=== PATIENT | male | born 1990 | race Caucasian/White ===

== ENCOUNTER 2020-05-30 17:03 | Outpatient (REF) | payer OTHER, SELFPAY | END 2020-05-30 17:04 | disposition home or self-care (01) | LOC: HO.LAB 17:03 | PROVIDERS: PCP Internal Medicine; Visit Provider Internal Medicine | DX: Z20.828 Contact with and (suspected) exposure to other viral communicable diseases (principal) | CPT/HCPCS: 87635 ==

== ENCOUNTER 2021-03-09 12:33 | Emergency (ER) | payer OTHER, SELFPAY ==
--- NOTE | ~2021-03-09 | CT_ITS ---
EXAMINATION: CT ABDOMEN AND PELVIS WITHOUT CONTRAST CLINICAL INFORMATION: Left flank pain COMPARISON: None TECHNIQUE: Multidetector volumetric imaging was performed from the superior aspect of the liver through the pubic symphysis. Sagittal and coronal reformatted images were obtained on the technologist's workstation. This CT examination was performed using dose optimization techniques as appropriate, variously including the following: *Automated exposure control *Adjustment of mA and/or kV according to patient size (this includes techniques or standardized protocols for targeted exams where dose is matched to indication/reason for exam; i.e. extremities or head) *Use of iterative reconstruction technique DLP: 492 mGy-cm FINDINGS: LUNG BASES: The visualized lung bases are unremarkable. LIVER, GALLBLADDER, AND BILIARY TREE: The liver is normal in size, shape, and attenuation. No focal hepatic lesion or biliary ductal dilatation is present. The gallbladder is unremarkable with no evidence of radiopaque gallstones, gallbladder wall thickening, or obvious pericholecystic inflammatory changes. PANCREAS: Unremarkable. SPLEEN: Unremarkable. ADRENAL GLANDS: Unremarkable. KIDNEYS AND URETERS: The kidneys are normal in size, shape, and attenuation. No hydronephrosis, hydroureter, or calculi seen. No perinephric stranding. BLADDER: Unremarkable. GASTROINTESTINAL TRACT: The small and large bowel are unremarkable. The appendix is unremarkable. ABDOMINAL WALL: Small fat-containing umbilical hernia without inflammation. LYMPH NODES: Normal. VASCULAR: Unremarkable. PELVIC VISCERA: Unremarkable. OSSEOUS STRUCTURES: Unremarkable. CT/CT abdomen pelvis wo con IMPRESSION: No urinary calculi. No significant abnormality.
[2021-03-09 12:47] VITALS: BP 106/75; PULSE 84; RESP 18; TEMP 37; O2SAT 98; BMI 27.6
[2021-03-09 15:23] LABS: MANUAL DIFF FLAG NO
[2021-03-09 15:25] LABS: Basophils Absolute Auto 0.1 X10*3/uL (0.0-0.2); Basophils Percent Auto 0.9 % (0-2); Eosinophils Absolute Auto 0.1 X10*3/uL (0.0-0.4); Eosinophils Percent Auto 1.3 % (0-4); Hematocrit 43.3 % (42-52); Hemoglobin 15.8 g/dl (14.0-18.0); Imm Gran Abs Auto 0.04 X10*3/uL (0.00-0.03); Imm Gran Pct Auto 0.4 % (0.0-0.4); Lymphocytes Absolute Auto 1.8 X10*3/uL (1.2-4.9); Lymphocytes Percent Auto 20.4 % (20-40); Mean Corpuscular HGB Conc 36.5 g/dl (31.0-36.0); Mean Corpuscular Hemoglobin 33.5 pg (27.0-33.0); Mean Corpuscular Volume 91.9 fL (80-98); Monocytes Absolute Auto 0.6 X10*3/uL (0.1-1.2); Neutrophils Absolute Auto 6.3 X10*3/uL (2.0-8.3); Platelet Count 249 X10*3/uL (160-400); Red Blood Count 4.71 X10*6/uL (4.60-5.80)
[2021-03-09 15:26] LABS: Glucose Urine UA NEG (NEG); Leukocyte Esterase Urine NEG (NEG); Nitrite Urine NEG (NEG); Urine Blood NEG (NEG); Urine Ketones NEG (NEG); Urine Protein NEG (NEG-TRACE)
[2021-03-09 15:29] LABS: Appearance Urine CLEAR; Color Urine YELLOW
[2021-03-09 15:56] LABS: Alanine Aminotransferase 118 U/L (0-40); Albumin Level 4.9 g/dL (3.5-5.0); Alkaline Phosphatase 113 U/L (39-117); Anion Gap 13 (12-20); Aspartate Amino Transferase 69 U/L (5-37); Bilirubin Total 0.7 mg/dL (0.0-1.0); Blood Urea Nitrogen 13 mg/dL (9-16); Calcium 9.4 mg/dL (8.4-10.2); Carbon Dioxide 28 mmol/L (22-29); Chloride 102 mmol/L (96-108); Creatinine Clr Calc Pharmacy 122.3; Estimated Glomerular Filt Rate > 60; Glucose Random 98 mg/dL (60-115); Sodium 139 mmol/L (135-145); Total Protein 8.3 g/dL (6.5-8.0)
[2021-03-09] MEDS: Ketorolac Tromethamine 30 MG/ML VIAL IM (16:20)
[2021-03-09 16:26] VITALS: BP 112/74; PULSE 62; RESP 14; O2SAT 97
--- NOTE | 2021-03-09 16:54 | ED_ITS ---
HPI - Abdominal Pain General Chief Complaint: Abdominal Pain Stated Complaint: abd pain Time Seen by Provider: 03/09/21 16:04 Source: patient Mode of arrival: ambulatory Limitations: no limitations History of Present Illness HPI narrative: 30 y/o male with no significant medical history presents to the ER with 5 days of constant non-traumatic left flank pain. He reports the pain is dull and at times comes in waves of severe sharp pain. He denies injury or heavy lifting. He denies any urinary symptoms. No N/V/D. No fever or chills. MD elicited complaint: flank pain Pertinent past history: none Onset (ago): day(s) (5) Pain Consistency: constant Location: L flank Severity: moderate Pain scale (0-10): 7 Quality: aching Radiation: LUQ Migration to: no migration Exacerbating factors: nothing Relieving factors: nothing Associated symptoms: denies other symptoms Related Data Previous Rx's Medication Instructions Recorded cyclobenzaprine 10 mg PO TID PRN #10 tab 03/09/21 ibuprofen 600 mg PO Q8H PRN #15 tab 03/09/21 lidocaine [Lidoderm] 1 patch TOPICAL DAILY #15 ea 03/09/21 Allergies Allergy/AdvReac Type Severity Reaction Status Date / Time No Known Allergies Allergy Verified 03/09/21 12:46 [No Known Allergies*] Review of Systems Review of Systems Constitutional: No Fever, No Chills ENT/Mouth: No sore throat, No Rhinorrhea, No Swallowing Difficulty Eyes: No Eye Pain, No Swelling, No Redness Cardiovascular: No Chest Pain, No SOB, No Orthopnea, No Edema Respiratory: No Cough, No Sputum, No Wheezing, No dyspnea Gastrointestinal: No Nausea, No Vomiting, No Diarrhea, + abdominal Pain, No Hematochezia, No Melena Genitourinary: No Dysuria, No Urinary Frequency, No Hematuria Musculoskeletal: No joint pain, No Myalgias Skin: No Skin Lesions, No rash Neuro: No Weakness, No Numbness, No Dizziness, No Headache Psych: No Anxiety/Panic, No Depression Heme/Lymph: No Bruising, No Lymphadenopathy Endocrine: No Polyuria, No Polydipsia Physical Exam Vital Signs: Vital Signs: Last Vital Signs Temp 98.6 F 03/09/21 12:47 Pulse 73 03/09/21 17:42 Resp 16 07/18/21 17:42 BP 109/69 03/09/21 17:42 Pulse Ox 98 03/09/21 17:42 Body Mass Index 27.6 Appearance: Alert. Oriented X3. No acute distress. Eyes: Pupils equal, round and reactive to light. ENT: Pharynx normal. Neck: Normal inspection. Neck supple. CVS: Normal heart rate and rhythm. Pulses normal. Respiratory: No respiratory distress. Breath sounds normal. Abdomen: Soft and nontender. +BS x4. No CVA tenderness. Mild tenderness throughout left flank. no rashes or ecchymosis Skin: Skin warm and dry. Normal skin color. Normal skin turgor. No rashes. Extremities: No lower extremity edema. Neuro: Oriented X 3. No motor deficit. No sensory deficit. Course Course Course Narrative: 30 y/o male presenting with left flank pain. Atypical of kidney stones. Labs are normal but given his reports of 7/[address] scan for further evaluation. Reevaluation(s) Reevaluation #1: CT scan is negative. Will treat for MSK pain, possible muscle strain with slight tenderness on examination. He will f/u with his PCP this week. Stable for d/c home. MDM - Abdominal Pain Lab Data Result diagrams: 03/09/21 15:07 03/09/21 15:07 Labs: Lab Results 03/09/21 03/09/21 03/09/21 Range/Units 15:07 15:07 15:17 WBC 9.0 (4.8-10.8) X10*3/uL RBC 4.71 (4.60-5.80) X10*6/uL Hgb 15.8 (14.0-18.0) g/dl Hct 43.3 (42-52) % MCV 91.9 (80-98) fL MCH 33.5 H (27.0-33.0) pg MCHC 36.5 H (31.0-36.0) g/dl RDW 11.0 (11.0-16.0) % Plt Count 249 (160-400) X10*3/uL MPV 10.0 (9.4-12.4) fL Immature Gran % (Auto) 0.4 (0.0-0.4) % Neut % (Auto) 70.0 (45-73) % Lymph % (Auto) 20.4 (20-40) % Beckham % (Auto) 7.0 (2-11) % Eos % (Auto) 1.3 (0-4) % Baso % (Auto) 0.9 (0-2) % Lymph # (Auto) 1.8 (1.2-4.9) X10*3/uL Beckham # (Auto) 0.6 (0.1-1.2) X10*3/uL Eos # (Auto) 0.1 (0.0-0.4) X10*3/uL Baso # (Auto) 0.1 (0.0-0.2) X10*3/uL Abs Immat Gran (auto) 0.04 H (0.00-0.03) X10*3/uL Absolute Neuts (auto) 6.3 (2.0-8.3) X10*3/uL Absolute Nucleated RBC 0.000 (0.0-0.012) X10*3/uL Nucleated RBC % (auto) 0.0 (0.0-0.2) /100WBC Sodium 139 (135-145) mmol/L Potassium 4.0 (3.3-5.1) mmol/L Chloride 102 (96-108) mmol/L Carbon Dioxide 28 (22-29) mmol/L Anion Gap 13 (12-20) BUN 13 (9-16) mg/dL Creatinine 0.91 (0.5-1.4) mg/dL Estim Creat Clear Calc 122.3 Estimated GFR > 60 Random Glucose 98 (60-115) mg/dL Calcium 9.4 (8.4-10.2) mg/dL Total Bilirubin 0.7 (0.0-1.0) mg/dL AST 69 H (5-37) U/L ALT 118 H (0-40) U/L Alkaline Phosphatase 113 (39-117) U/L Total Protein 8.3 H (6.5-8.0) g/dL Albumin 4.9 (3.5-5.0) g/dL Urine Color YELLOW Urine Appearance CLEAR Urine pH 6.0 (5.0-8.0) Ur Specific [place] 1.010 (1.005-1.025) Urine Protein NEG (NEG-TRACE) MG/DL Urine Glucose (UA) NEG (NEG) MG/DL Urine Ketones NEG (NEG) MG/DL Urine Blood NEG (NEG) Urine Nitrite NEG (NEG) Ur Leukocyte Esterase NEG (NEG) Critical Care Time Critical Care Time Critical Care Time: No Discharge Plan Discharge Clinical Impression: Muscle strain Patient Disposition: Home, Self-Care Instructions: Musculoskeletal Pain (ED) Additional Instructions: Your lab work and CT scans today were normal. Your pain is most likely muscular in nature. Recommend rest. No strenuous activity. No bending, lifting or twisting. Use ice several times per day for 20 minutes at a time for the next 48 hours and then change to heat. Take medications as prescribed to help with pain and discomfort. Follow up with your Primary Care Doctor this week. If your pain worsens, or if you develop any new or concerning symptoms 911 or come back to the ER right away for evaluation. Prescriptions: New cyclobenzaprine 10 mg tablet 10 mg PO TID PRN (Reason: muscle spasm) Qty: 10 RF: 0 ibuprofen 600 mg tablet 600 mg PO Q8H PRN (Reason: pain) Qty: 15 RF: 0 lidocaine [Lidoderm] 5 % adhesive patch,medicated 1 patch topical DAILY Qty: 15 RF: 0 Referrals: Jostin Rosenbaum MD [Primary Care Provider] - 2 days Stand Alone Forms: Work/School Release Interventions: ED Discharge Assessment Last Done: 03/09/21 19:29 Discharge Date/Time: 03/09/21 19:29 [facility] Past Medical History Attestation statement: The following information was validated with the patient. Medical History (Updated 03/09/21 @ 18:35 by GIRISH Jones) No pertinent past medical history Social History Social History Advance Directives: No Advance Directives Information Provided: No
[2021-03-09 17:42] VITALS: BP 109/69; PULSE 73; RESP 16; O2SAT 98
== END 2021-03-09 19:29 | disposition home or self-care (01) ==
PROVIDERS: Emergency Provider Emergency Medicine; PCP Internal Medicine
DX: R10.12 Left upper quadrant pain (principal); Z79.899 Other long term (current) drug therapy
CPT/HCPCS: 36415; 74176; 80053; 81003; 85025; 96372; 99284; J1885

== ENCOUNTER 2021-04-01 13:10 | Outpatient (REF) | payer OTHER, SELFPAY ==
[2021-04-05 12:42] LABS: Norfentanyl, Ur >500.0 (H)
== END 2021-04-01 13:11 | disposition home or self-care (01) ==
LOC: HO.LAB 13:10
PROVIDERS: PCP Internal Medicine; Visit Provider Internal Medicine
DX: F11.99 Opioid use, unspecified with unspecified opioid-induced disorder (principal); Z79.899 Other long term (current) drug therapy
CPT/HCPCS: 80305; 80354; 99202

== ENCOUNTER → 2022-12-04 13:16 | Outpatient (BNVA) | payer MEDICAID, SELFPAY | PROVIDERS: PCP Internal Medicine; Visit Provider Nurse Practitioner Family | DX: R10.31 Right lower quadrant pain (principal); R10.32 Left lower quadrant pain; R79.89 Other specified abnormal findings of blood chemistry | CPT/HCPCS: 99202 ==

== ENCOUNTER 2022-12-30 12:46 | Outpatient (REF) | payer MEDICAID, SELFPAY ==
[2022-12-30 14:27] LABS: Ferritin 209 ng/mL (20-250); Thyroid Stimulating Hormone 3.62 uIU/mL (0.32-4.0)
[2023-01-01 04:04] LABS: Follicle Stimulating Hormone 3.1 mIU/mL (1.6-8.0); Lutenizing Hormone 5.9 mIU/mL (1.5-9.3); Prolactin 13.8 ng/mL (2.0-18.0)
[2023-01-05 19:47] LABS: Testosterone, Free 45.2 pg/mL (35.0-155.0); Testosterone, Total 345 ng/dL (250-1100)
== END 2022-12-30 12:47 | disposition home or self-care (01) ==
LOC: HO.10HDL 12:46
PROVIDERS: Visit Provider Nurse Practitioner Family
DX: E11.9 Type 2 diabetes mellitus without complications (principal); R79.89 Other specified abnormal findings of blood chemistry
CPT/HCPCS: 36415; 82728; 83001; 83002; 84146; 84402; 84403; 84443

== ENCOUNTER → 2023-01-13 14:41 | Outpatient (BNVA) | payer MEDICAID, SELFPAY | PROVIDERS: PCP Internal Medicine; Visit Provider Urology | DX: R79.89 Other specified abnormal findings of blood chemistry (principal) | CPT/HCPCS: 99212 ==

== ENCOUNTER 2023-08-03 15:04 | Outpatient (REF) | payer MEDICAID, SELFPAY ==
--- NOTE | ~2023-08-03 | XR_ITS ---
EXAMINATION: XR ABDOMEN COMPLETE CLINICAL INDICATION: Pain and nausea. COMPARISON: None available. TECHNIQUE: 2 views of the abdomen. FINDINGS: The bowel gas pattern is normal with no evidence of ileus or obstruction. No unusual soft tissue calcifications are noted. The bones are unremarkable. XR/XR abdomen min 2V IMPRESSION: Nonspecific bowel gas pattern.
== END 2023-08-03 15:05 | disposition home or self-care (01) ==
LOC: HO.HMGCX 15:04
PROVIDERS: PCP Internal Medicine; Visit Provider Internal Medicine
DX: R10.9 Unspecified abdominal pain (principal); R11.0 Nausea
CPT/HCPCS: 74019

== ENCOUNTER 2025-05-22 14:34 | Outpatient (AMB) | payer OTHER, SELFPAY ==
--- NOTE | 2025-05-22 14:31 | MHC.PC.OV ---
Vital Signs 05/22/25 14:41 Height 5 ft 7.13 in Weight 159 lb BMI 24.8 BP 109/56 L Respiration 14 Pulse 68 Pulse Source Pulse Oximeter Temp 98.2 F Temp Source Temporal Artery Scan Pulse Oximetry (%) 99 Oxygen Delivery Method Room Air Intake Visit Reasons: [place] [facility] [place] [employer] Account Executive Required: No Accompanied by: Self / Same As Patient Allergies No Known Allergies (No Known Allergies*) Allergy (Verified 05/22/25 14:32) Tobacco use date assessed: 05/22/25 Dental Screening Dental Screen Date: 05/22/25 Did you have a dental visit in the last 12 months?: No Did you have a dental problem in the last 6 months where you did not have access to dental care?: No Was dental information given to patient?: Patient has dentist (has upcoming dentist appt) [facility] Medical History (Updated 05/22/25 @ 15:10 by Adrian Vela MD) Major depression in complete remission No pertinent past medical history Family History (Updated 05/22/25 @ 14:49 by MARIO Costello) Father Sarcoidosis Kidney failure Mother No problems noted. Social History (Updated 05/22/25 @ 14:49 by MARIO Costello) Housing: House Alcohol intake: current Alcohol intake frequency: does not drink Patient Tobacco Use Status: Never used Tobacco service: No Current occupational status: employed Cognitive needs: No Hearing needs: No Vision needs: No Questionnaire PHQ-9 Over the last 2 weeks, how often have you been bothered by any of the following problems? 1. Little interest or pleasure in doing things: not at all 2. Feeling down, depressed, or hopeless: not at all 3. Trouble falling or staying asleep, or sleeping too much: not at all 4. Feeling tired or having little energy: not at all 5. Poor appetite or overeating: not at all 6. Feeling bad about yourself - or that you are a failure or have let yourself or your family down: not at all 7. Trouble concentrating on things, such as reading the newspaper or watching television: not at all 8. Moving or speaking so slowly that other people could have noticed. Or the opposite - being so fidgety or restless that you have been moving around a lot more than usual: not at all 9. Thoughts that you would be better off or of hurting yourself in some way: not at all Total score: 0 Source: Developed by Drs. Gordon Arriola, Jose Keith and colleagues, with an educational jayson from [employer]. Thrive Questionnaire Date Thrive assessed: 05/22/25 I am a: Patient What is your living situation today?: I have a steady place to live Within the past 12 months, did the food you bought not last and you didn't have the money to get more?: Never true Within the past 12 months, did you worry whether your food would run out before you got money to buy more?: Never true Do you have trouble paying for medicines?: No Do you have trouble getting transportation to medical appointments?: No Do you have trouble paying your heating and electricity bill?: No Do you have trouble taking care of your child, family member or friend?: No Do you have trouble with day-to-day activities such as bathing, preparing meals, shopping, managing finances, etc.?: No Are you currently unemployed and looking for a job?: No Are you interested in more education?: No Please select the resources that you would like help with: None THRIVE Score: 0 AUDIT C Alcohol Use Questionnaire (AUDIT-C) 1. How often do you have a drink containing alcohol?: Never 3. How often do you have six or more drinks on one occasion?: Never Total Score: 0 THEODORE-7 AMB Questionnaire THEODORE-7 Date THEODORE - 7 assessed: 05/22/25 Feeling nervous, anxious, or on edge: 0 = Not at all Not being able to stop or control worryin = Not at all Worrying too much about different things: 0 = Not at all Trouble relaxin = Not at all Being so restless that it is hard to sit still: 0 = Not at all Becoming easily annoyed or irritable: 0 = Not at all Feeling afraid as if something awful might happen: 0 = Not at all Total THEODORE-7 score (0-4 normal; 5-9 mild; 10-14 moderate; 15-21 severe): 0 Source: Developed by Shirlene Noriega Kurt Kroenke and colleagues, with an educational jayson from [employer]. Physical exam (Primary Care) Vital Signs: Last Vital Signs Temp 98.2 F 05/22/25 14:41 Pulse 68 05/22/25 14:41 Resp 14 05/22/25 14:41 BP 109/56 L 05/22/25 14:41 Pulse Ox 99 05/22/25 14:41 Oxygen Delivery Method Room Air 05/22/25 14:41 BMI result Body Mass Index 24.8 Tobacco/Smoking Status: Tobacco use Status Tobacco use date assessed 05/22/25 05/22/25 14:33 Patient Tobacco Use Status Never used Tobacco 05/22/25 14:49 PHQ-9: PHQ-9 Score PHQ-9: Total score 0 05/22/25 14:49 Thrive Assessment: Date of Thrive Assessment Date Thrive assessed 05/22/25 05/22/25 14:33 Coding Level of Care Code New Pt Level 4 (75091) Complex EM visit Add On G2211 Diagnoses Major depression in complete remission F32.5 Assessment & Plan Assessment & Plan (1) Major depression in complete remission: Code(s): F32.5 - Major depressive disorder, single episode, in full remission Category: Medical Plan: Declined to continue the prescription of anxiolytics. Patient was given an appt for the [facility] psychiatry center. Plan History of Present Illness - The patient is a 35-year-old male presenting with dermatological concerns, allergic rhinitis, and medication management. - Dermatological concerns: The patient reports moles on his back that his girlfriend suggested be evaluated by a special tax auditor. He also has a persistent red martha on his nose from a scratch by his nephew two to three years ago, which has not resolved. - Allergic rhinitis: The patient takes Loratadine and Fluticasone for allergy management. He experiences nasal discharge and suspects a possible allergy to his cat. He inquired about allergy testing to identify specific allergens. - Anxiety: The patient has been taking Alprazolam for anxiety management. He expressed concerns about the habit-forming nature of the medication and discussed the possibility of weaning off it with his previous physician, Dr. Estrada. - Herpes simplex: The patient uses Valacyclovir as needed for herpes simplex management, particularly during prodromal symptoms of an outbreak. - Substance use disorder: The patient has a history of substance use disorder, specifically with oxycodone, and has been on Methadone maintenance therapy for approximately ten years. - Hypogonadism: The patient was diagnosed with low testosterone levels and is currently on testosterone replacement therapy. He initially consulted with Dr. Dumont and Dr. Amaya but now receives treatment through an online provider. He expressed concerns about fertility and previously used HCG to maintain fertility, but discontinued due to cost. 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 - Substance use: The patient denies current tobacco and alcohol use. Review of Systems - Dermatological: Reports persistent nasal erythema from previous trauma. - Respiratory: Reports nasal discharge, possibly related to allergies. Physical Exam General: Cooperative and healthy appearing Nutritional Appearance: Well nourished Orientation/consciousness: Patient oriented x3 Limitations: No limitations Head: Normal to inspection General: Appearance normal, both eyes and all related structures Neck: Normal visual inspection Chest: Normal palpation of entire chest wall Respiratory: Breathe in and out okay ormal respiratory effort Neurology: Patient oriented x3 Results Plan - Dermatological concerns: Referral to a special tax auditor for evaluation of moles on the back and persistent nasal erythema. - Allergic rhinitis: Continue Fluticasone and Loratadine. Consider allergy testing to identify specific allergens. - Anxiety: Referral to psychiatry for evaluation and management of anxiety, particularly regarding Alprazolam use. - Herpes simplex: Continue Valacyclovir as needed for outbreak management. - Substance use disorder: Continue Methadone maintenance therapy. - Hypogonadism: Continue testosterone replacement therapy. Consider consultation with a urologist for fertility management and potential HCG therapy. Discussion Notes I discussed with the patient the need for a dermatological evaluation for the moles on his back and the persistent nasal erythema. We talked about continuing his current allergy medications and considering allergy testing to identify specific allergens. I expressed concerns about the long-term use of Alprazolam for anxiety and recommended a referral to psychiatry for further management. We also discussed the continuation of Valacyclovir for herpes simplex management and Methadone for substance use disorder. The patient is advised to continue testosterone replacement therapy and consider consulting a urologist for fertility management and potential HCG therapy. Patient Instructions - Follow up with a special tax auditor for moles and nasal erythema evaluation. - Continue taking Fluticasone and Loratadine for allergies. - Consider allergy testing to identify specific allergens. - Follow up with psychiatry for anxiety management and Alprazolam use. - Continue Valacyclovir as needed for herpes simplex outbreaks. - Continue Methadone maintenance therapy. - Continue testosterone replacement therapy and consider consulting a urologist for fertility management. Orders: Orders Lipid Panel Today J - Other allergic rhinitis Complete Blood Count Auto Diff Today J - Other allergic rhinitis Basic Metabolic Panel Today J. - Other allergic rhinitis Liver Panel Today J. - Other allergic rhinitis Thyroid Stimulating Hormone Today J - Other allergic rhinitis UA and rflx microscopic Today J - Other allergic rhinitis Referrals Psychiatry Outpatient Consultation Service F32.4 - Major depressive disorder, single episode, in partial remission Medications: New fluticasone propionate 50 mcg/actuation administer into each nostril 1 spray intranasal DAILY 16 grams 1RF Changed From valacyclovir 500 mg PO DAILY To valacyclovir 500 mg PO DAILY PRN 30 tabs 0RF rash
[2025-05-22 14:41] VITALS: BP 109/56; PULSE 68; RESP 14; TEMP 36.8; O2SAT 99; BMI 24.8
--- OUTSIDE RECORDS SUMMARY | 2025-05-22 15:57 | XMS_ITS | Clinical Summary ---
Author Organization [facility] Address [address] [place] [address] Care Team Providers Care Hoop Riveter Name Role Phone Pcp, No Primary Care Provider Unavailabl e Social History Tobacco Use Types Packs/Day Years Used Date Smoking Tobacco: Never Assessed Sex and Gender Information Value Date Recorded Sex Assigned at Not on file Legal Sex Male 9:35 AM EDT Gender Identity Not on file Sexual Orientation Not on file Plan of Treatment Health Maintenance Due Date Last Done Comments Hepatitis C Virus Screening 1992 HIV Screening 2005 DTaP/Tdap/Td Vaccines (1 - Tdap) 2011 Hepatitis B Vaccines (1 of 3 - 19+ 3-dose series) 2011 HPV Vaccines (1 - 3-dose SCD M series) 2019 Influenza Vaccine 03/23/2025 COVID-19 Vaccine (2023-2 5 season) 2025 Pneumococcal Vaccine: Pediat britany (0-5 Years) and At-Risk Patients (6 to 49 Years) Aged Out No longer eligible b ased on patient's age to complete this topic Insurance [facility] [place] [place] Care Teams Hoop Riveter Relationship Specialty Start Date End Date Pcp, No PCP - General General Medicine 03/23/19
--- OUTSIDE RECORDS SUMMARY | 2025-05-22 15:57 | XMS_ITS | Clinical Summary ---
Author Organization [facility] Address [address] [address] Phone Care Team Providers Care Baby Stroller Rental Clerk Name Role Phone Jostin Rosenbaum MD Primary Care Provider [phone] Allergies Active Allergy Reactions Criticality Noted Date Comments Amoxicillin 08/23/2021 Other reaction(s): RASH Medications finasteride (PROPECIA) 1 mg tablet Take 1 mg by mouth daily. Active ibuprofen (ADVIL,MOTRIN) 600 MG tablet Take 1 tablet by mouth every 8 (eight) hours as needed. 03/09/2021 Active Active Problems No known active problems Immunizations Immunization Administration Dates Next Due DTP 01/08/1994, 3,1992,06/27 Dtap, 5 Pertussis Antigens 04/12/1998 Hepatitis B 1992,1992,1992 Hib,PRP-T 09/29/1993, 3,1992,06/27 INFLUENZA, SPLIT VIRUS, TRIV ALENT W/ PRESERVATIVE IM 09/12/2008,09/12/2008 IPV 04/12/1998 MMR 04/17/1996,09/29/1993 Meningococcal ACWY, unspecif ied formulation 03/29/2006 Meningococcal MCV4P 03/29/2006 Polio - OPV 01/08/1994,1992,1992 Td (adult),2 Lf Tetanus Toxo id, PF, Adsorbed 06/11/2003 Tdap 08/23/2016,12/05/2008 Varicella 12/05/2008,12/05/2008,10/31/1997 Social History Tobacco Use Types Packs/Day Years Used Date Smoking Tobacco: Never Smokeless Tobacco: Never Alcohol Use Standard Drinks/Week Comments Yes 6 (1 standard drink = 0.6 oz pur e alcohol) 3-4x per week Education Answer Date Recorded Are you interested in more education? Not on nicky e 12/18/2022 Are you concerned about learning? Not on file 12/18/2022 No 12/18/2022 No 12/18/2022 Digital Access Answer Date Recorded No 01/16/2023 No 01/16/2023 No 01/16/2023 Reliable internet access at home? Not on file 01/16/2023 Device with a working camera? Not on file Sex and Gender Information Value Date Recorded Sex Assigned at Male 08/30/2017 9:38 AM EST Legal Sex Male 10:25 PM EDT Gender Identity Male 08/30/2017 9:38 AM EST Sexual Orientation Straight 08/30/2017 9: 38 AM EST Last Filed Vital Signs Vital Sign Reading Time Taken Comments Blood Pressure 105/75 08/23/2021 1:05 PM EST Pulse 95 08/23/2021 1:05 PM EST Temperature 36.8 C (98.2 F) 08/23/2021 1:05 PM EST Respiratory Rate 18 08/23/2021 1:05 PM EST Oxygen Saturation 95% 08/23/2021 1:05 PM EST Inhaled Oxygen Concentration - - Weight 77.1 kg (170 lb) 08/23/2021 1:05 PM EST Height 172.7 cm (5' 8 ) 08/23/2021 1:05 PM EST Body Mass Index 25.85 08/23/2021 1:05 PM EST Plan of Treatment Health Maintenance Due Date Last Done Comments DEPRESSION SCREENING 2004 HEPATITIS C SCREENING 2010 HIV ONE-TIME SCREENING (18-65 YEARS) 2010 INFLUENZA VACCINE (#1) 2025 09/12/2008, 2008 COVID-19 VACCINE ( season) 2025 Adult Td,Tdap Booster 08/23/2026 08/23/2016 , 12/05/2008, 06/11/2003 HIB VACCINES Completed 09/29/1993, 02/21, 1992, Additional history exists MENINGOCOCCAL VACCINES (ACWY) Aged Out 03/29/2006, 03/29/2006 No longer eligibl e based on patient's age to complete this topic SMOKING STATUS SCREENING (Once After 26 Yrs) Completed 08/23/2021 HEPATITIS A VACCINES Aged Out No long er eligible based on patient's age to complete this topic MENINGOCOCCAL VACCINES (B) Aged Out N o longer eligible based on patient's age to complete this topic PNEUMOCOCCAL VACCINES (0-49 years) Aged Out No longer eligible based on patient's age to complete this topic Medical Devices Not on file Insurance [facility] NON NSPG PCP [employer] [facility] NON NSPG PCP [employer]CIAL [employer] NON NSPG PCP [employer] COMMERCIAL [employer] NON NSPG PCP [employer] COMMERCIAL [employer] NON NSPG PCP [employer] COMMERCIAL [employer] NON NSPG PCP [employer] COMMERCIAL [employer] NON NSPG PCP [employer] COMMERCIAL [employer] NON NSPG PCP [employer]CIAL [employer] NON NSPG PCP [employer] COMMERCIAL Care Teams Baby Stroller Rental Clerk Relationship Specialty Start Date End Date Jostin Rosenbaum MD [address] [place] [address] PCP - General Internal Medicine 08/23/21 Additional Source Comments The information contained in this document represents components of the legal health record. It is not the complete legal health record.[facility]
== END 2025-05-22 15:11 | disposition home or self-care (01) ==
LOC: HO.HMCSH 14:34
PROVIDERS: PCP Internal Medicine; Visit Provider Internal Medicine
DX: F32.5 Major depressive disorder, single episode, in full remission (principal)

== ENCOUNTER → 2025-05-22 14:34 | Outpatient (BNVA) | payer OTHER, SELFPAY | PROVIDERS: PCP Internal Medicine; Visit Provider Internal Medicine | DX: F32.5 Major depressive disorder, single episode, in full remission (principal); J30.89 Other allergic rhinitis | CPT/HCPCS: 99202 ==

== ENCOUNTER 2025-06-25 08:08 | Outpatient (REF) | payer OTHER, SELFPAY ==
--- OUTSIDE RECORDS SUMMARY | 2025-06-25 08:19 | XMS_ITS | Clinical Summary ---
Author Organization [facility] Address [address] [address] Phone Care Team Providers Care Application Operations Engineer Name Role Phone Jostin Rosenbaum MD Primary Care Provider [phone]- [phone] Allergies Active Allergy Reactions Criticality Noted Date [...] topic Medical Devices Not on file Insurance [facility] NON NSPG PCP [employer] COMM[employer]CIAL [facility] NON NSPG PCP [employer] COMM[employer]CIAL [employer] NON NSPG PCP [employer] COMMERCIAL [employer] NON NSPG PCP [employer] COMMERCIAL [employer] NON NSPG PCP [employer] COMMERCIAL [employer] NON NSPG PCP [employer] COMMERCIAL [employer] NON NSPG PCP [employer] COMMERCIAL [employer] NON NSPG PCP [employer] COMMERCIAL [employer] NON [place]SP[place] [address] Care Teams Application Operations Engineer Relationship Specialty Start Date End Date Jostin Rosenbaum MD [address] [place] [address] PCP - General Internal Medicine 08/23/21 Additional Source Comments The information contained in this document represents components of the legal health record. It is not the complete legal health record.[facility]
--- OUTSIDE RECORDS SUMMARY | 2025-06-25 08:19 | XMS_ITS | Clinical Summary ---
Author Organization [facility] Address [address] [place] [address] Care Team Providers Care Automotive Parts Specialist Name Role Phone Pcp, No Primary Care [...] of 3 - 19+ 3-dose series) 2011 Influenza Vaccine 03/23/2025 COVID-19 Vaccine ( - 2023-2 5 season) 2025 HPV Vaccines (No Doses Required) Completed Pneumococcal Vaccine: Pediat britany (0-5 Years) and At-Risk Patients (6 to 49 Years) Aged Out No longer eligible b ased on patient's age to complete this topic Insurance [facility] on file Care Teams Automotive Parts Specialist Relationship Specialty Start Date End Date Pcp, No PCP - General General Medicine 03/23/19
[2025-06-25 08:20] LABS: MANUAL DIFF FLAG NO
[2025-06-25 09:04] LABS: Hematocrit 45.3 % (42.0-52.0); Hemoglobin 15.4 g/dl (14.0-18.0); Imm Gran Abs Auto 0.01 X10*3/uL (0.00-0.03); Imm Gran Pct Auto 0.2 % (0.0-0.4); Lymphocytes Absolute Auto 1.5 X10*3/uL (1.2-4.9); Mean Corpuscular HGB Conc 34.0 g/dl (31.0-36.0); Mean Corpuscular Hemoglobin 31.3 pg (27.0-33.0); Mean Corpuscular Volume 92.1 fL (80.0-98.0); NRBC Abs Auto 0.000 X10*3/uL (0.0-0.012); NRBC Pct Auto 0.0 /100WBC (0.0-0.2); Platelet Count 210 X10*3/uL (160-400); Red Blood Count 4.92 X10*6/uL (4.60-5.80); White Blood Count 5.5 X10*3/uL (4.8-10.8)
[2025-06-25 09:23] LABS: Appearance Urine Clear; Glucose Urine UA Negative (Negative); PH 7.5 (5.0-9.0); Specific Gravity - Urine 1.020 (1.005-1.025)
[2025-06-25 09:52] LABS: Alanine Aminotransferase 33 U/L (0-40); Albumin Level 4.2 g/dL (3.5-5.0); Alkaline Phosphatase 135 U/L (39-117); Anion Gap 8 (12-20); Aspartate Amino Transferase 39 U/L (5-37); Blood Urea Nitrogen 17 mg/dL (9-16); Calcium 8.9 mg/dL (8.4-10.2); Carbon Dioxide 29 mmol/L (22-29); Chloride 106 mmol/L (96-108); Cholesterol 120 mg/dL (<200); Estimated Glomerular Filt Rate > 60; HDL Cholesterol 44 mg/dL (>40); Potassium 4.2 mmol/L (3.3-5.1); Sodium 139 mmol/L (135-145); Total Protein 6.8 g/dL (6.5-8.0); Triglycerides 34 mg/dL (<150)
[2025-06-25 10:11] LABS: Thyroid Stimulating Hormone 1.49 uIU/mL (0.32-4.0)
[2025-07-01 17:14] LABS: Testosterone, Free 271.7 pg/mL (35.0-155.0)
== END 2025-06-25 08:09 | disposition home or self-care (01) ==
LOC: HO.LAB 08:08
PROVIDERS: PCP Internal Medicine; Visit Provider Internal Medicine
DX: F32.5 Major depressive disorder, single episode, in full remission (principal); F11.99 Opioid use, unspecified with unspecified opioid-induced disorder; J30.89 Other allergic rhinitis
CPT/HCPCS: 36415; 80048; 80061; 80076; 81003; 84402; 84403; 84443; 85025